=== PATIENT | male | born 1995 | race African-American/Black ===

== ENCOUNTER 2017-09-04 09:58 | Emergency (ER) | payer SELFPAY ==
[~2017-09-04] VITALS: Wt 64.9 kg
[2017-09-04] MEDS ORDERED: GENT5DRO28 LEFT EYE (12:16)
--- NOTE | 2017-09-04 12:19 | ERD ---
ER Documentation Chief Complaint Chief Complaint LEFT EYE PAIN HPI This 21-year-old male presents with 3 day history of left eye redness and discharge. Denies any visual changes or visual deficits. He denies any URI symptoms. Has history of trauma or foreign objects or working around the machinery or potential foreign body. ROS All systems reviewed and are negative except as per history of present illness. Medications Home Meds Active Scripts Gentamicin Sulfate* (Gentamicin Sulfate* Ophth) 0.3% - 5 Ml Drops, 1 DROP LEFT EYE Q4 for 7 Days, EA Prov:COLIN SHARPE MD 09/04/17 Physical Exam Vitals Vital Signs Date Time Temp Pulse Resp B/P Pulse Ox O2 Delivery O2 Flow Rate FiO2 09/04/17 10:01 97.8 71 18 128/67 99 Physical Exam Const: [] Alert, [id number]. Head: Atraumatic Eyes: Scleral redness extending from 3:00 to 9:00 in the left eye. Eyes PERRLA and anterior chambers appeared normal. There is no proptosis, periorbital erythema. ENT: Normal External Ears, Nose and Mouth. Neck: Full range of motion..~ No meningismus. Resp: Clear to auscultation bilaterally Cardio: Regular rate and rhythm, no murmurs Abd: Soft, non tender, non distended. Normal bowel sounds Skin: No petechiae or rashes Back: No midline or flank tenderness Ext: No cyanosis, or edema Neur: Awake and alert Psych: Normal Mood and Affect Procedures/MDM Patient presents with signs of conjunctivitis in the left eye. Current signs or symptoms do not suggest acute glaucoma, threats to vision, retinal detachment , orbital cellulitis, retinal artery ischemia, optic neuritis, dendritic lesions , ulcerations or additional emergencies. We treated with gentamicin, primary care follow-up and return precautions. The patient was stable with no new complaints during the ER course. Clinically, there is no current evidence to suggest meningitis, sepsis, acute abdomen, pneumonia, acute coronary syndrome, pulmonary embolism, or any other emergent condition appearing to require further evaluation or hospitalization. The patient should certainly return for any new or worsening symptoms per the aftercare instructions. They should otherwise follow-up with her primary care doctor for reevaluation this week. Departure Diagnosis: Primary Impression: Conjunctivitis Conjunctivitis type: acute Acute conjunctivitis type: unspecified Laterality: left Qualified Code: H10.32 - Acute conjunctivitis of left eye, unspecified acute conjunctivitis type Condition: Stable Patient Instructions: Conjunctivitis, Non-Specific Additional Instructions: Recheck for new or worsening symptoms or primary care doctor. COLIN SHARPE MD Sep 04, 2017 12:19
== END 2017-09-04 12:48 | disposition home or self-care (01) ==
LOC: FTE 09:58
DX: H10.32 Unspecified acute conjunctivitis, left eye (principal)
CPT/HCPCS: 99283